=== PATIENT | male | born 1935 | race Caucasian/White ===

== ENCOUNTER 2016-11-16 17:32 | Emergency (ER) | payer MEDICARE, OTHER ==
[2016-11-16] MEDS ORDERED: Zofran 4 MG/2 ML VIAL IV ONE (18:00)
[2016-11-16] MEDS ORDERED: Sodium Chloride 0.9% 1000 ML 1,000 ML IV SCH (18:00)
[2016-11-16] MEDS ORDERED: SUBLIMAZE 100 MCG/2 ML IV ONE ×3 (18:00→20:37)
[2016-11-16] MEDS ORDERED: SUBLIMAZE 100 MCG/2 ML ONE ×3 (18:05→20:46)
[2016-11-16] MEDS ORDERED: Zofran 4 MG/2 ML VIAL ONE (18:05)
[2016-11-16] MEDS ORDERED: Sodium Chloride 0.9% 1000 ML 1,000 ML ONE (18:06)
[2016-11-16 18:11] LABS: BASOPHIL % 0.1 % (0.0-0.4); Eosinophil % 0.1 % (0.00-5.0); Granulocytes % 83.4 % (36.0-66.0); Lymphocytes % 8.9 % (24.0-44.0); Mean Cell Volume 102.9 fl (78-100); Mean Corpuscular Hemoglobin 32.6 pg (26-32); Mean Platelet Volume 9.1 fl (6-9.5); Monocytes % 7.5 % (0.0-12.0); Platelet Count 194 K/mm3 (150-450); Red Blood Count 3.74 M/mm3 (4.1-5.6); Red Cell Distribution Width 15.6 % (11.5-14.0); White Blood Count 9.3 K/mm3 (4.0-10.5)
[2016-11-16 18:25] LABS: INR 1.02 (0.8-3.0); PROTIME 11.4 SECONDS (8.83-12.87)
[2016-11-16 18:37] LABS: ALBUMIN 3.4 g/dL (3.4-5.0); ANION GAP 14.8 MEQ/L (5-15); BILIRUBIN,TOTAL 0.5 mg/dL (0.2-1.0); Carbon Dioxide 31.4 mEq/L (21-32); Potassium 4.8 mEq/L (3.5-5.1); Total Protein 6.5 gm/dL (6.4-8.2)
--- NOTE | 2016-11-16 19:08 | ERPHSYRPT ---
- History of Present Illness Time Seen by Provider: 11/16/16 17:45 Historian: patient Exam Limitations: clinical condition Patient Subjective Stated Complaint: PT STATES AMBULANCE WAS TAKING [facility] AND HE HAD A SUDDEN ONSET OF ABDOMINAL APIN AFTER DIALYSIS THIS AFTERNOON. PT STATES PAIN IS CRAMPING AND COMES AND GOES. LAST BM ON 11/15/16. Triage Nursing Assessment: PT PINK, WARM, DRY. ABDOMEN HARD, DISTENDED. BOWEL SOUNDS PRESENT IN ALL 4 QUADS. PT AFEBRILE. Physician History: PATIENT WITH HISTORY OF CHRONIC RENAL FAILURE, ONSET OF GENERALIZED ABDOMINAL PAIN EARLIER THIS AM, DENIES NAUSEA, EMESIS OR DIARRHEA. HAD DIALYSIS THIS AFTERNOON. STATES ABDOMINAL PAIN HAS BEEN CONSTANT, PAIN SCALE 8/10. Timing/Duration: today Quality: sharpness Abdominal Pain Onset Location: generalized abdomen Pain Radiation: no radiation Severity of Pain-Max: moderate Severity of Pain-Current: moderate Modifying Factors: Improves With: nothing Associated Symptoms: denies symptoms Previous symptoms: no prior history Allergies/Adverse Reactions: Barbiturates Allergy (Verified 11/16/16 17:40) hallucinations morphine Allergy (Verified 11/16/16 17:40) hallucinations Home Medications: Gabapentin 300 mg PO BID 09/26/14 [History] Metoprolol Tartrate 25 mg [Lopressor 25MG Tab] 25 mg PO BID 09/26/14 [ History] Multivit-Min/FA/Lycopene/Lut [Centrum Silver Ultra Men's Tab] 1 each PO DAILY [History] Pantoprazole Sodium [Protonix] 40 mg PO DAILY 09/26/14 [History] Prednisone 20 mg [Deltasone 20 mg] 20 mg PO DAILY 09/26/14 [History] Tamsulosin HCl 0.4 mg [Flomax 0.4 MG] 0.4 mg PO HS 02/11/15 [History] Acetaminophen 325 mg [Tylenol 325 mg] 325 mg PO Q4HPRN PRN 06/16/15 [ History] Hx Tetanus, Diphtheria Vaccination/Date Given: Yes (UP OT DATE) Hx Influenza Vaccination/Date Given: Yes Hx Pneumococcal Vaccination/Date Given: Yes Immunizations Up to Date: Yes - Review of Systems Constitutional: No Fever, No Chills Eyes: No Symptoms Ears, Nose, & Throat: No Symptoms Respiratory: No Symptoms, No Cough, No Dyspnea Cardiac: No Chest Pain, No Edema, No Syncope Abdominal/Gastrointestinal: Abdominal Pain, No Nausea, No Vomiting, No Diarrhea Genitourinary Symptoms: No Symptoms, No Dysuria Musculoskeletal: No Back Pain, No Neck Pain Skin: No Rash Neurological: No Symptoms, No Dizziness, No Focal Weakness, No Sensory Changes Psychological: No Symptoms Endocrine: No Symptoms All Other Systems: Reviewed and Negative - Past Medical History Pertinent Past Medical History: Yes Neurological History: Peripheral Neuropathy ENT History: Cataracts, Macular Degeneration Cardiac History: Arrhythmia, Hypertension Respiratory History: No Pertinent History Endocrine Medical History: No Pertinent History Musculoskeletal History: Degenerative Disk Disease, Fractures, Osteoarthritis, Osteoporosis, Rheumatoid Arthritis GI Medical History: GERD, Ulcer History: Renal Disease Psycho-Social History: Anxiety, Depression Male Reproductive Disorders: No Pertinent History Other Medical History: DEGENERATIVE DISC DISEASE. stage 4 kidney failure. pulmonary fibrosis. chronic pain. DIALYSIS - Past Surgical History Past Surgical History: Yes Neuro Surgical History: No Pertinent History Cardiac: No Pertinent History Respiratory: No Pertinent History Gastrointestinal: Appendectomy Genitourinary: No Pertinent History Musculoskeletal: Orthopedic Surgery Male Surgical History: No Pertinent History Other Surgical History: TONSILLECTOMYbilateral hips and left knee replaced, left shoulder "Ball replaces". back surgery- laminectomy/"formenectomy". Kyphoplasty 02/05/15 - Social History Smoking Status: Former smoker Exposure to second hand smoke: No Drug Use: none Patient Lives Alone: No - Nursing Vital Signs Nursing Vital Signs: Initial Vital Signs Temperature 98.8 F Temperature Source Oral Pulse Rate 104 Respiratory Rate 18 Blood Pressure [] 150/73 Pain Intensity 2 - Physical Exam General Appearance: mild distress, alert Eye Exam: PERRL/EOMI, eyes nml inspection Ears, Nose, Throat Exam: normal ENT inspection, pharynx normal, moist mucous membranes Neck Exam: normal inspection, non-tender, supple, full range of motion Respiratory Exam: normal breath sounds, lungs clear, No respiratory distress Cardiovascular Exam: regular rate/rhythm, normal heart sounds Gastrointestinal/Abdomen Exam: soft, normal bowel sounds, tenderness, distention (MODERATELY DISTENTION, PERIUMBILICAL AND RIGHT LOWER QUAD TENDERNESS ), No mass Back Exam: normal inspection, normal range of motion, No CVA tenderness, No vertebral tenderness Extremity Exam: normal inspection, normal range of motion, pelvis stable Neurologic Exam: alert, oriented x 3, cooperative, normal mood/affect, nml cerebellar function, sensation nml, No motor deficits Skin Exam: normal color, warm, dry SpO2 Interpretation: normal SpO2: 97 Oxygen Delivery: Room Air - CT Exams Abdomen/Pelvis CT Interpretation: Discussed w/radiologist (STABLE NONACUTE ABDOMINAL PELVIC CT WITHOUT CONTRAST, SCATTERED COLONIC DIVERTICULOSIS, ) Ordered Tests: Active Orders 24 hr Category Date Time Status IV Insertion STAT Care 11/16/16 17:51 Active Oxygen-ED Only NASAL CANNULA 3 lpm Care 11/16/16 18:32 Active ABDOMEN AND PELVIS W/0 CONTRAS [CT] Stat Exams 11/16/16 18:05 Taken AMYLASE Stat Lab 11/16/16 18:00 Completed CBC W DIFF Stat Lab 11/16/16 18:00 Completed CMP Stat Lab 11/16/16 18:00 Completed LIPASE Stat Lab 11/16/16 18:00 Completed PROTIME WITH INR Stat Lab 11/16/16 18:10 Completed Medication Summary Generic Name Dose Route Start Last Admin Trade Name Freq PRN Reason Stop Dose Admin Sodium Chloride 1,000 mls @ 10 mls/hr 11/16/16 18:00 11/16/16 18:07 Sodium Chloride 0.9% 1000 Ml IV 12/16/16 17:59 10 mls/hr .Q24H ALYSHA Administration Discontinued Medications Generic Name Dose Route Start Last Admin Trade Name Freq PRN Reason Stop Dose Admin Fentanyl Citrate 25 mcg 11/16/16 18:00 11/16/16 18:07 Sublimaze 100 Mcg/2 Ml IV 11/16/16 18:01 25 mcg STAT ONE Administration Fentanyl Citrate Confirm 11/16/16 18:05 Sublimaze 100 Mcg/2 Ml Administered 11/16/16 18:06 Dose 100 mcg .ROUTE .STK-MED ONE Fentanyl Citrate 50 mcg 11/16/16 19:02 11/16/16 19:10 Sublimaze 100 Mcg/2 Ml IV 11/16/16 19:03 50 mcg STAT ONE Administration Fentanyl Citrate Confirm 11/16/16 19:10 Sublimaze 100 Mcg/2 Ml Administered 11/16/16 19:11 Dose 100 mcg .ROUTE .STK-MED ONE Sodium Chloride Confirm 11/16/16 18:06 Sodium Chloride 0.9% 1000 Ml Administered 11/16/16 18:07 Dose 1,000 mls @ ud .ROUTE .STK-MED ONE Ondansetron HCl 4 mg 11/16/16 18:00 11/16/16 18:07 Zofran 4 Mg/2 Ml Vial IV 11/16/16 18:01 4 mg STAT ONE Administration Ondansetron HCl Confirm 11/16/16 18:05 Zofran 4 Mg/2 Ml Vial Administered 11/16/16 18:06 Dose 4 mg .ROUTE .STK-MED ONE Lab/Rad Data: Laboratory Result Diagrams 11/16/16 18:00 11/16/16 18:00 Laboratory Results 11/16/16 11/16/16 11/16/16 Range/Units 18:10 18:00 18:00 WBC 9.3 (4.0-10.5) K/mm3 RBC 3.74 L (4.1-5.6) M/mm3 Hgb 12.2 L (12.5-18.0) gm/dl Hct 38.5 L (42-50) % MCV 102.9 H (78-100) fl MCH 32.6 H (26-32) pg MCHC 31.7 L (32-36) g/dl RDW 15.6 H (11.5-14.0) % Plt Count 194 (150-450) K/mm3 MPV 9.1 (6-9.5) fl Gran % 83.4 H (36.0-66.0) % Lymphocytes % 8.9 L (24.0-44.0) % Monocytes % 7.5 (0.0-12.0) % Eosinophils % 0.1 (0.00-5.0) % Basophils % 0.1 (0.0-0.4) % Basophils # 0.01 (0-0.4) INR 1.02 (0.8-3.0) Sodium 139 (136-145) mEq/L Potassium 4.8 (3.5-5.1) mEq/L Chloride 98 (98-107) mEq/L Carbon Dioxide 31.4 (21-32) mEq/L Anion Gap 14.8 (5-15) MEQ/L BUN 12 (9-20) mg/dL Creatinine 3.43 H (0.55-1.30) mg/dl Estimated GFR 18 ML/MIN Glucose 125 H (70-110) MG/DL Calcium 9.1 (8.5-10.1) mg/dL Total Bilirubin 0.5 (0.2-1.0) mg/dL AST 15 (15-37) U/L ALT 21 (12-78) U/L Alkaline Phosphatase 77 (46-116) U/L Serum Total Protein 6.5 (6.4-8.2) gm/dL Albumin 3.4 (3.4-5.0) g/dL Amylase 215 H (25-115) U/L Lipase 241 (73-393) U/L - Progress Progress: pain not gone completely Progress Note: 11/16/16 19:07 PATIENT GIVEN IV NORMAL SALINE 10ML/HR, ZOFRAN 4MG IV, FENTANYL 25MCG, FOLLOWED BY ADDITIONAL DOSE FENTANYL 50MCG IV Discussed with : Other (DISCUSSED WITH DR MILES AT 1940 ACCEPTS TRANSFER VIA [facility] TO [facility]) - Departure Time of Disposition: 20:30 Departure Disposition: Transfer Clinical Impression: ACUTE ABDOMINAL PAIN, CHRONIC RENAL FAILURE Condition: Stable Critical Care Time: No Referrals: PITER DANIEL MD [Primary Care Provider] -
[2016-11-16 21:14] VITALS: BP 118/71; PULSE 79; O2SAT 99
--- NOTE | 2016-11-17 08:45 | XRAY ---
Indication: Lower abdominal pain. Abdominal distention. Multiple contiguous axial images obtained through the abdomen and pelvis without contrast as ordered. Comparison: May 02, 2014. Lung bases again demonstrates bibasilar fibrosis/scarring and calcified pleural plaquing. Heart is not enlarged. Images through the pelvic floor are degraded by extreme beam artifact from bilateral hip prostheses. Noncontrasted stomach and bowel loops appear nonobstructed. Again scattered colonic diverticulosis greatest in the descending and sigmoid colon without diverticulitis. Previous reported appendectomy. No free fluid/air. Both kidneys remain small. Punctate nonobstructing left renal calculus. Again a few pancreatic calcifications presumed chronic pancreatitis. Remaining liver, gallbladder, pancreas, spleen, adrenal glands, kidneys, ureters, and bladder appear unremarkable for noncontrast exam. There remains moderate aortoiliac calcifications without AAA. Osseous structures again demonstrates moderate multilevel degenerative changes throughout the spine. There has been interval L1/L2 kyphoplasty. Stable small fatty left inguinal hernia. Impression: 1. No acute intra-abdominal/pelvic abnormalities on this noncontrast exam. 2. Again scattered bibasilar calcified pleural plaquing, colonic diverticulosis, chronic pancreatitis, and small fatty left inguinal hernia. 3. New nonobstructing left renal micro-calculus. CT DI 33.54
== END 2016-11-16 20:50 | disposition short-term general hospital (02) ==
LOC: ED 17:32
DX: R10.9 Unspecified abdominal pain (principal); N18.9 Chronic kidney disease, unspecified; K57.90 Diverticulosis of intestine, part unspecified, without perforation or abscess without bleeding; I10 Essential (primary) hypertension; Z79.899 Other long term (current) drug therapy
CPT/HCPCS: 36000; 36415; 74176; 80053; 82150; 83690; 85025; 85610; 96360; 96361; 96374; 96375; 96376; 99285; J2405; J3010

== ENCOUNTER 2017-01-15 13:54 | Emergency (ER) | payer MEDICARE, OTHER ==
[2017-01-15 14:09] VITALS: PULSE 88; O2SAT 97
[2017-01-15 14:11] VITALS: BP 127/67
[2017-01-15] MEDS ORDERED: TYLENOL EXTRA STRENGTH 500 MG PO STA (14:13)
[2017-01-15] MEDS ORDERED: TYLENOL EXTRA STRENGTH 500 MG ONE (14:16)
--- NOTE | 2017-01-15 14:21 | ERPHSYRPT ---
- History of Present Illness Time Seen by Provider: 01/15/17 14:16 Source: patient, EMS Exam Limitations: no limitations Patient Subjective Stated Complaint: PT FELL ASLEEP IN THE WHEELCHAIR ET FELL OUT-REPORTS HITTING HEAD-REPORTS HEADACHE-DENIES LOC-REPORTS PAIN TO RIGHT SHOULDER ET ARM Triage Nursing Assessment: PT [id number] NONLAOBRED-LARGE SKIN TEAR NOTED TO RIGHT SHOULDER ET ARM-BLEEDING CONTROLLED DATA ANALYSIS INTERN Physician History: The patient is an 81-year-old male who is a resident of [facility] complains of falling asleep in his wheelchair and then falling out of his wheelchair striking his right upper extremity and face on the hard floor. He doesn't remember the incident specifically. He has numerous skin tears on the right upper extremity. He says his head hurts. His past medical history is significant for sciatica, pulmonary fibrosis, renal failure, hypertension, GERD, and neuropathy. Occurred: just prior to arrival Reason for Fall: lost balance (from seated position) Injuries/Pain Location: head, face, upper extremity (right) Loss of Consciousness: brief (seconds) Quality: aching Severity of Pain-Max: moderate Severity of Pain-Current: moderate Modifying Factors: Improves With: nothing Associated Symptoms (Fall): denies symptoms Allergies/Adverse Reactions: Barbiturates Allergy (Verified 01/15/17 14:03) hallucinations morphine Allergy (Verified 01/15/17 14:03) hallucinations Home Medications: Gabapentin 300 mg PO BID 09/26/14 [History] Metoprolol Tartrate 25 mg [Lopressor 25MG Tab] 25 mg PO BID 09/26/14 [ History] Multivit-Min/FA/Lycopene/Lut [Centrum Silver Ultra Men's Tab] 1 each PO DAILY [History] Pantoprazole Sodium [Protonix] 40 mg PO DAILY 09/26/14 [History] Prednisone 20 mg [Deltasone 20 mg] 20 mg PO DAILY 09/26/14 [History] Acetaminophen 325 mg [Tylenol 325 mg] 325 mg PO Q4HPRN PRN 06/16/15 [ History] Isosorbide Mononitrate 30 mg [Imdur 30 MG] 30 mg PO HS 01/15/17 [History] Midodrine HCl 10 mg PO TID 01/15/17 [History] Hx Tetanus, Diphtheria Vaccination/Date Given: Yes Hx Influenza Vaccination/Date Given: Yes Hx Pneumococcal Vaccination/Date Given: Yes Immunizations Up to Date: Yes - Review of Systems Constitutional: No Fever, No Chills Eyes: No Symptoms Ears, Nose, & Throat: No Symptoms Respiratory: No Cough, No Dyspnea Cardiac: No Chest Pain, No Edema, No Syncope Abdominal/Gastrointestinal: No Abdominal Pain, No Nausea, No Vomiting, No Diarrhea Genitourinary Symptoms: No Dysuria Musculoskeletal: Fall, Injury Skin: Skin Lesions Neurological: Headache, No Dizziness, No Focal Weakness, No Sensory Changes Psychological: No Symptoms Endocrine: No Symptoms Hematologic/Lymphatic: No Symptoms Immunological/Allergic: No Symptoms All Other Systems: Reviewed and Negative - Past Medical History Pertinent Past Medical History: Yes Neurological History: Peripheral Neuropathy ENT History: Cataracts, Macular Degeneration Cardiac History: Arrhythmia, Hypertension Respiratory History: No Pertinent History Endocrine Medical History: No Pertinent History Musculoskeletal History: Degenerative Disk Disease, Fractures, Osteoarthritis, Osteoporosis, Rheumatoid Arthritis GI Medical History: GERD, Ulcer History: Renal Disease Psycho-Social History: Anxiety, Depression Male Reproductive Disorders: No Pertinent History Other Medical History: DEGENERATIVE DISC DISEASE. stage 4 kidney failure. pulmonary fibrosis. chronic pain. DIALYSIS - Past Surgical History Past Surgical History: Yes Neuro Surgical History: No Pertinent History Cardiac: No Pertinent History Respiratory: No Pertinent History Gastrointestinal: Appendectomy Genitourinary: No Pertinent History Musculoskeletal: Orthopedic Surgery Male Surgical History: No Pertinent History Other Surgical History: TONSILLECTOMYbilateral hips and left knee replaced, left shoulder "Ball replaces". back surgery- laminectomy/"formenectomy". Kyphoplasty 02/05/15 - Social History Smoking Status: Former smoker Exposure to second hand smoke: No Drug Use: none Patient Lives Alone: No - Nursing Vital Signs Nursing Vital Signs: Initial Vital Signs Temperature 97.5 F Temperature Source Oral Pulse Rate 88 Respiratory Rate 22 Blood Pressure [Right Arm] 127/67 Pain Intensity 10 - Crystal Coma Score Best Eye Response ([place]): (4) open spontaneously Best Verbal Response ([place]): (5) oriented Best Motor Response ([place]rystal): (6) obeys commands Crystal Total: 15 - Physical Exam General Appearance: moderate distress Head Injury: tenderness (facial) Eye Exam: PERRL/EOMI ENT Exam: airway nml Neck Exam: normal inspection, No tenderness Respiratory/Chest Exam: normal breath sounds, No chest tenderness, No respiratory distress Cardiovascular Exam: normal heart sounds, regular rate/rhythm Gastrointestinal Exam: soft, No tenderness, No distention, No guarding, No ecchymosis Rectal Exam: not done Back Exam: normal inspection, No vertebral tenderness Extremity Exam: normal inspection, normal range of motion, pelvis stable, No deformities Neurologic Exam: alert, oriented x 3, cooperative, sensation nml, No motor deficits Skin Exam: other (numerous skin tears to right shoulder, right arm, and left hand.) SpO2 Interpretation: normal SpO2: 97 Oxygen Delivery: Nasal Cannula - CT Exams Cervical Spine CT Interpretation: Negative, Tele-radiologist Report (No new acute findings per Dr Hendrickson) Head CT Interpretation: Tele-radiologist Report, No/Intracranial Hemorrhag (No acute intracranial bleed, opacification L maxillary sinus and R mastoid air cells presumed inflammatory per DR Hendrickson.) Ordered Tests: Active Orders 24 hr Category Date Time Status Wound Care STAT Care 01/15/17 14:14 Active CERVICAL SPINE WO CONTRAST [CT] Stat Exams 01/15/17 14:09 Taken HEAD WITHOUT CONTRAST [CT] Stat Exams 01/15/17 14:09 Taken Medication Summary Discontinued Medications Generic Name Dose Route Start Last Admin Trade Name Rick PRN Reason Stop Dose Admin Acetaminophen 1,000 mg 01/15/17 14:13 01/15/17 14:19 Tylenol Extra Strength 500 Mg PO 01/15/17 14:14 1,000 mg STAT STA Administration Acetaminophen Confirm 01/15/17 14:16 Tylenol Extra Strength 500 Mg Administered 01/15/17 14:17 Dose 1,000 mg .ROUTE .STK-MED ONE Hydromorphone HCl 0.5 mg 01/15/17 14:52 01/15/17 15:15 Hydromorphone 1 Mg/Ml Ampule IM 01/15/17 14:53 0.5 mg STAT ONE Administration Hydromorphone HCl Confirm 01/15/17 15:12 Hydromorphone 1 Mg/Ml Ampule Administered 01/15/17 15:13 Dose 1 mg .ROUTE .STK-MED ONE - Progress Progress: improved, pain not gone completely Counseled pt/family regarding: diagnosis, rad results - Departure Time of Disposition: 16:00 Departure Disposition: Home Clinical Impression: Multiple contusions, Skin tear Condition: Stable Critical Care Time: No Additional Instructions: You fell out of her wheelchair onto a hard floor causing multiple contusions and multiple tears to your skin. The head and cervical spine CTs were negative for any fractures. The skin tears were closed with Steri-Strips. These will fall off on their own. You were given Dilaudid 0.5 mg by IM injection in the ER for pain. You may take Tylenol as needed for pain in the [facility]ci.
[2017-01-15] MEDS ORDERED: Hydromorphone 1 mg/ml Ampule IM ONE (14:52)
[2017-01-15] MEDS ORDERED: Hydromorphone 1 mg/ml Ampule ONE (15:12)
[2017-01-15] MEDS ORDERED: BACIGUENT PACKET ONE (16:18)
[2017-01-15] MEDS ORDERED: BACIGUENT PACKET TP ONE (16:44)
--- NOTE | 2017-01-15 22:03 | XRAY ---
Indication: Frontal fall from wheelchair. Multiple contiguous axial images obtained through the cervical spine. Sagittal and coronal reformatted images obtained. Comparison: August 07, 2016 Axial images again negative for acute fracture, suspicious bony lesions, or spinal canal stenosis. Stable multilevel degenerative endplate spurring again greatest at the C5-C7 level. Stable degenerative facet arthropathy. Sagittal and coronal reformatted images again demonstrates lordotic straightening, positional versus paraspinal spasm. Stable multilevel degenerative disc space loss and degenerative 2 mm C2 spondylolisthesis on C3. No acute compression fracture or jumped facet. Normal-appearing craniocervical junction. Visualized noncontrasted soft tissues again demonstrates bilateral carotid calcifications and near complete opacification of the left maxillary sinus with calcification. CT head reported separately. Impression: 1. Stable lordotic straightening, positional versus paraspinal spasm. Again negative for acute fracture/subluxation. 2. Stable multilevel degenerative changes including minimal C2 grade 1 spondylolisthesis. 3. Stable chronic left maxillary sinus disease. CTDI 68.05
--- NOTE | 2017-01-15 22:09 | XRAY ---
Indication: Frontal fall from wheelchair. Multiple contiguous axial images obtained through the head without contrast. Comparison: June 16, 2015. Stable age-appropriate global atrophy and mild periventricular degenerative microvascular ischemia bilaterally. All the ventricles remain prominent. No acute intracranial hemorrhage, abnormal extra-axial fluid collection, or mass effect. Bony calvarium intact. There is now moderate mucoperiosteal thickening of the left maxillary sinus and near-complete opacification of the right mastoid air cells. Impression: 1. Stable nonacute senile brain and prominent ventricular system. 2. Incidental pattern is sinus disease. Near-complete opacification of the right mastoid air cells presumed inflammatory. CTDI 61.38
== END 2017-01-15 16:46 | disposition home or self-care (01) ==
LOC: ED 13:54
DX: S00.93XA Contusion of unspecified part of head, initial encounter (principal); S00.83XA Contusion of other part of head, initial encounter; S41.011A Laceration without foreign body of right shoulder, initial encounter; S41.111A Laceration without foreign body of right upper arm, initial encounter; S61.412A Laceration without foreign body of left hand, initial encounter; R51 Headache; M25.511 Pain in right shoulder; W05.0XXA Fall from non-moving wheelchair, initial encounter; Y93.84 Activity, sleeping; Y92.129 Unspecified place in nursing home as the place of occurrence of the external cause; Y99.8 Other external cause status; I12.9 Hypertensive chronic kidney disease with stage 1 through stage 4 chronic kidney disease, or unspecified chronic kidney disease; N18.4 Chronic kidney disease, stage 4 (severe); M54.30 Sciatica, unspecified side; K21.9 Gastro-esophageal reflux disease without esophagitis; G62.9 Polyneuropathy, unspecified; M81.0 Age-related osteoporosis without current pathological fracture; M06.9 Rheumatoid arthritis, unspecified; Z99.2 Dependence on renal dialysis; F41.8 Other specified anxiety disorders; Z79.899 Other long term (current) drug therapy
CPT/HCPCS: 70450; 72125; 96372; 99284; J1170; A9270-GY

== ENCOUNTER 2017-01-28 12:44 | Emergency (ER) | payer MEDICARE, OTHER ==
[2017-01-28] MEDS ORDERED: TENIVAC VIAL IM ONE (12:55)
[2017-01-28 13:33] LABS: Mean Corpuscular Hemoglobin 33.4 pg (26-32); Mean Platelet Volume 9.1 fl (6-9.5); Platelet Count 195 K/mm3 (150-450); Red Blood Count 3.08 M/mm3 (4.1-5.6); Red Cell Distribution Width 15.3 % (11.5-14.0); White Blood Count 10.6 K/mm3 (4.0-10.5)
[2017-01-28 13:40] LABS: INR 1.06 (0.8-3.0); PROTIME 11.8 SECONDS (8.83-12.87)
[2017-01-28 13:43] LABS: PTT 27.5 SECONDS (24.1-36.1)
[2017-01-28 13:48] LABS: ALBUMIN 2.7 g/dL (3.4-5.0); ANION GAP 10.5 MEQ/L (5-15); BILIRUBIN,TOTAL 0.6 mg/dL (0.2-1.0); Carbon Dioxide 34.1 mEq/L (21-32); Potassium 5.1 mEq/L (3.5-5.1); Total Protein 5.6 gm/dL (6.4-8.2)
[2017-01-28] MEDS ORDERED: Hydromorphone 1 mg/ml Ampule IV ONE (14:35)
[2017-01-28] MEDS ORDERED: Hydromorphone 1 mg/ml Ampule ONE (14:37)
--- NOTE | 2017-01-28 14:43 | ERPHSYRPT ---
- History of Present Illness Time Seen by Provider: 01/28/17 12:55 Source: patient, family (daughter), EMS, [facility] records Patient Subjective Stated Complaint: FELL FROM CHAIR AT [employer] [facility]. C/O PAIN TO RIGHT SHOULDER. Triage Nursing Assessment: TO ROOM PER EMS COT. SKIN W/D, COLOR NORMAL. SEVERE PAIN NOTED TO RIGHT SHOULDER. HAS OLD SKIN TEARS TO RIGHT ARM. ONE NEW SKIN TEAR NOTED TO UPPER ARM. DRESSING TO TEARS. ALSO HAS PAIN LEFT LOWER LET BUT STATES THIS IN NOT NEW. LEFT LOWER LEG RED AND HAS OPEN SORE COVERED WITH DRESSING FROM HOME. Physician History: CC: fall Hx: 81 y/o patient of Dr Lawrence/Nate. He has hx of chronic renal failure. He has recent falls. Yesterday was more confused and had more mobililty issues after dialysis. He did not feel well today and has not had dialysis today. He slid from his chair. He lives at [facility]. EMS was called. He had some head pain and neck pain so was brought to ER. He has right shoulder pain. He has pain in left leg. Unsure if this is from the redness and swelling or from injury. Daughter worried the leg is more red and from infection. Tetanus up to date according to computer. Pt denies syncope but he was some confused on arrival. Occurred: just prior to arrival Reason for Fall: slipped (from lift chair) Allergies/Adverse Reactions: Barbiturates Allergy (Verified 01/28/17 13:25) hallucinations morphine Allergy (Verified 01/28/17 13:25) hallucinations NSAIDS (Non-Steroidal Anti-Inflamma Allergy (Verified 01/28/17 13:25) Home Medications: Gabapentin 300 mg PO BID 09/26/14 [History] Metoprolol Tartrate 25 mg [Lopressor 25MG Tab] 25 mg PO BID 09/26/14 [ History] Multivit-Min/FA/Lycopene/Lut [Centrum Silver Ultra Men's Tab] 1 each PO DAILY [History] Pantoprazole Sodium [Protonix] 40 mg PO DAILY 09/26/14 [History] Prednisone 20 mg [Deltasone 20 mg] 20 mg PO DAILY 09/26/14 [History] Acetaminophen 325 mg [Tylenol 325 mg] 325 mg PO Q4HPRN PRN 06/16/15 [ History] Isosorbide Mononitrate 30 mg [Imdur 30 MG] 30 mg PO HS 01/15/17 [History] Midodrine HCl 10 mg PO TID 01/15/17 [History] Hx Tetanus, Diphtheria Vaccination/Date Given: Yes Hx Influenza Vaccination/Date Given: Yes Hx Pneumococcal Vaccination/Date Given: Yes - Review of Systems Constitutional: No Fever, No Chills Eyes: No Symptoms Respiratory: No Dyspnea Cardiac: No Chest Pain Abdominal/Gastrointestinal: No Abdominal Pain Skin: Other (redness left leg. Abrasion right shoulder from prior fall.) Neurological: No Focal Weakness, No Parasthesia All Other Systems: Unable due to condition - Past Medical History Pertinent Past Medical History: Yes Neurological History: Peripheral Neuropathy ENT History: Cataracts, Macular Degeneration Cardiac History: Arrhythmia, Hypertension Respiratory History: No Pertinent History Endocrine Medical History: No Pertinent History Musculoskeletal History: Degenerative Disk Disease, Fractures, Osteoarthritis, Osteoporosis, Rheumatoid Arthritis GI Medical History: GERD, Ulcer History: Renal Disease Psycho-Social History: Anxiety, Depression Male Reproductive Disorders: No Pertinent History Other Medical History: DEGENERATIVE DISC DISEASE. stage 4 kidney failure. pulmonary fibrosis. chronic pain. DIALYSIS - Past Surgical History Past Surgical History: Yes Neuro Surgical History: No Pertinent History Cardiac: No Pertinent History Respiratory: No Pertinent History Gastrointestinal: Appendectomy Genitourinary: No Pertinent History Musculoskeletal: Orthopedic Surgery Male Surgical History: No Pertinent History Other Surgical History: TONSILLECTOMYbilateral hips and left knee replaced, left shoulder "Ball replaces". back surgery- laminectomy/"formenectomy". Kyphoplasty 02/05/15 - Social History Smoking Status: Former smoker Exposure to second hand smoke: No Drug Use: none Patient Lives Alone: No (assisted living) - Nursing Vital Signs Nursing Vital Signs: Initial Vital Signs Temperature 98.2 F Temperature Source Oral Pulse Rate 85 Respiratory Rate 22 Blood Pressure [Left Arm] 131/62 Pain Intensity 10 - Physical Exam General Appearance: alert, obese Head Injury: no evidence of injury Eye Exam: PERRL/EOMI Neck Exam: c-collar in place (changed to foam [place] collar here maintaining cervical stabilization.) Respiratory/Chest Exam: decreased breath sounds, No chest tenderness Cardiovascular Exam: regular rate/rhythm Gastrointestinal Exam: soft, No tenderness, No distention Back Exam: No vertebral tenderness Extremity Exam: tenderness (right shoulder with old and new abrasions/skin tears ) Neurologic Exam: alert, confusion (mildly), other (sometimes uncooperative which is not atypical for him), No motor deficits Skin Exam: warm, dry SpO2 Interpretation: normal SpO2: 97 Oxygen Delivery: Room Air - Course Nursing assessment & vital signs reviewed: Yes - Radiology Exams right shoulder, left lower leg, pelvis X-ray Interpretation: No Fracture - CT Exams cervical CT Interpretation: Tele-radiologist Report, No Fracture, No Subluxation head CT Interpretation: Tele-radiologist Report (normal pressure hydrocephalus, sinusitis, no bleed or fx) Ordered Tests: Active Orders 24 hr Category Date Time Status Cervical Collar Application STAT Care 01/28/17 12:55 Active IV Insertion STAT Care 01/28/17 12:55 Active NPO (ED) STAT Care 01/28/17 12:55 Active Wound Care STAT Care 01/28/17 12:55 Active CERVICAL SPINE WO CONTRAST [CT] Stat Exams 01/28/17 12:56 Taken HEAD WITHOUT CONTRAST [CT] Stat Exams 01/28/17 12:56 Taken LOWER LEG Stat Exams 01/28/17 12:57 Taken PELVIS (1 OR 2 VIEWS) Stat Exams 01/28/17 12:56 Taken SHOULDER Stat Exams 01/28/17 12:57 Taken BLOOD CULTURE Stat Lab 01/28/17 13:47 Received CBC W DIFF Stat Lab 01/28/17 13:17 Completed CMP Stat Lab 01/28/17 13:17 Completed Lactic Acid Stat Lab 01/28/17 13:33 Completed Manual Differential NC Stat Lab 01/28/17 13:17 Completed PROTIME WITH INR Stat Lab 01/28/17 13:17 Completed PTT Stat Lab 01/28/17 13:17 Completed Medication Summary Discontinued Medications Generic Name Dose Route Start Last Admin Trade Name Freq PRN Reason Stop Dose Admin Hydromorphone HCl 0.5 mg 01/28/17 14:35 01/28/17 14:42 Hydromorphone 1 Mg/Ml Ampule IV 01/28/17 14:36 0.5 mg STAT ONE Administration Hydromorphone HCl Confirm 01/28/17 14:37 Hydromorphone 1 Mg/Ml Ampule Administered 05/13/17 14:38 Dose 1 mg .ROUTE .STK-MED ONE Tetanus/Diphtheria Toxoids Adsorbed 0.5 ml 01/28/17 12:55 01/28/17 13:30 Tenivac Vial IM 01/28/17 12:56 Not Given .ONCE ONE Lab/Rad Data: Laboratory Result Diagrams 01/28/17 13:17 01/28/17 13:17 Laboratory Results 01/28/17 01/28/17 01/28/17 Range/Units 13:33 13:17 13:17 WBC (4.0-10.5) K/mm3 RBC (4.1-5.6) M/mm3 Hgb (12.5-18.0) gm/dl Hct (42-50) % MCV (78-100) fl MCH (26-32) pg MCHC (32-36) g/dl RDW (11.5-14.0) % Plt Count (150-450) K/mm3 MPV (6-9.5) fl Segmented Neutrophils (36.-66.) % Band Neutrophils (0.0-2.0) % Lymphocytes (Manual) (24-44) % Monocytes (Manual) (0.0-12.0) % Platelet Estimate (NORMAL) INR 1.06 (0.8-3.0) APTT 27.5 (24.1-36.1) SECONDS Sodium 141 (136-145) mEq/L Potassium 5.1 (3.5-5.1) mEq/L Chloride 101 (98-107) mEq/L Carbon Dioxide 34.1 H (21-32) mEq/L Anion Gap 10.5 (5-15) MEQ/L BUN 29 H (9-20) mg/dL Creatinine 5.68 H (0.55-1.30) mg/dl Estimated GFR 10 ML/MIN Glucose 145 H (70-110) MG/DL Lactic Acid 1.7 (0.4-2.0) Calcium 8.7 (8.5-10.1) mg/dL Total Bilirubin 0.6 (0.2-1.0) mg/dL AST 13 L (15-37) U/L ALT 15 (12-78) U/L Alkaline Phosphatase 67 (46-116) U/L Serum Total Protein 5.6 L (6.4-8.2) gm/dL Albumin 2.7 L (3.4-5.0) g/dL 01/28/17 Range/Units 13:17 WBC 10.6 H (4.0-10.5) K/mm3 RBC 3.08 L (4.1-5.6) M/mm3 Hgb 10.3 L (12.5-18.0) gm/dl Hct 34.2 L (42-50) % MCV 111.0 H (78-100) fl MCH 33.4 H (26-32) pg MCHC 30.1 L (32-36) g/dl RDW 15.3 H (11.5-14.0) % Plt Count 195 (150-450) K/mm3 MPV 9.1 (6-9.5) fl Segmented Neutrophils 79 H (36.-66.) % Band Neutrophils 2 (0.0-2.0) % Lymphocytes (Manual) 6 L (24-44) % Monocytes (Manual) 13 H (0.0-12.0) % Platelet Estimate NORMAL (NORMAL) INR (0.8-3.0) APTT (24.1-36.1) SECONDS Sodium (136-145) mEq/L Potassium (3.5-5.1) mEq/L Chloride (98-107) mEq/L Carbon Dioxide (21-32) mEq/L Anion Gap (5-15) MEQ/L BUN (9-20) mg/dL Creatinine (0.55-1.30) mg/dl Estimated GFR ML/MIN Glucose (70-110) MG/DL Lactic Acid (0.4-2.0) Calcium (8.5-10.1) mg/dL Total Bilirubin (0.2-1.0) mg/dL AST (15-37) U/L ALT (12-78) U/L Alkaline Phosphatase (46-116) U/L Serum Total Protein (6.4-8.2) gm/dL Albumin (3.4-5.0) g/dL - Progress Progress Note: 01/28/17 14:45 Daughter at bedside. Pt had large BM here which delayed imaging. He initially declined pain medication stating all opiods make him remember [place] and he did not want to go there. More uncomfortable on CT table so dilaudid given. 01/28/17 16:[address] Pineda for Dr Sullivan. He advised transfer to [facility] under hospitalist and defer abtx to them. Called [facility] one call and spoke to Dr Mackay who accepts transfer to [facility] hospitalist service. Counseled pt/family regarding: lab results, diagnosis, need for follow-up, rad results - Departure Time of Disposition: 16:25 Departure Disposition: Transfer Clinical Impression: Fall, Chronic renal failure, Cellulitis of left leg, Normal pressure hydrocephalus Condition: Fair Critical Care Time: No Referrals: PITER LAWRENCE MD [Primary Care Provider] -
[2017-01-28 15:46] LABS: BAND 2 % (0.0-2.0); Platelet Estimate NORMAL (NORMAL); Total Cells Counted 100
[2017-01-28 17:24] VITALS: BP 159/62; PULSE 76; O2SAT 98
--- NOTE | 2017-01-28 22:16 | XRAY ---
Indication: Injury following fall. Multiple contiguous axial images obtained through the head without contrast. Comparison: January 15, 2017. Study degraded by motion artifact. Stable age-appropriate global atrophy and mild periventricular degenerative microvascular ischemia bilaterally. All the ventricles remain prominent. No acute intracranial hemorrhage, abnormal extra-axial fluid collection, or mass effect. Bony calvarium intact. Again moderate mucoperiosteal thickening of the left maxillary sinus and near-complete opacification of the right mastoid air cells. Impression: 1. Motion artifact. 2. Stable nonacute senile brain and prominent ventricular system. 3. Again incidental paranasal sinus disease and opacification of the right mastoid air cells presumed inflammatory. Preliminary interpretation was made by [facility]. No discrepancy. CTDI 50.38
--- NOTE | 2017-01-28 22:20 | XRAY ---
Indication: Pain following fall. Comparison: August 22, 2016. 3 views of the right shoulder again demonstrates osteopenia and degenerative changes of the glenohumeral articulation and AC joint. No new/acute findings. Comment: Preliminary interpretation was made by [facility]. No discrepancy.
--- NOTE | 2017-01-28 22:22 | XRAY ---
Indication: Status post fall. 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 No other bony, articular, or soft tissue abnormalities.
--- NOTE | 2017-01-28 22:24 | XRAY ---
Indication: Status post fall. Comparison: None 2 views of the left lower leg demonstrates osteopenia, intact total knee arthroplasty, and scattered vascular calcifications. No other bony, articular, or soft tissue abnormalities.
--- NOTE | 2017-01-28 22:30 | XRAY ---
Indication: Status post fall. Multiple contiguous axial images obtained through the cervical spine. Sagittal and coronal reformatted images obtained. Comparison: January 15, 2017. Axial images demonstrates new nondisplaced hairline fracture involving the anterior arch of C1 inferiorly. No other acute fracture, suspicious bony lesions, or spinal canal stenosis. Stable multilevel degenerative endplate spurring again greatest at the C5-C7 level. Stable multilevel bilateral degenerative facet arthropathy. Sagittal and coronal reformatted images again demonstrates lordotic straightening, positional versus paraspinal spasm. Stable multilevel degenerative disc space loss and degenerative 2 mm C2 spondylolisthesis on C3. No acute compression fracture or jumped facet. Normal-appearing craniocervical junction. Visualized noncontrasted soft tissues again demonstrates bilateral carotid calcifications and near complete opacification of the left maxillary sinus with calcification. CT head reported separately. Impression: 1. New C1 anterior arch nondisplaced hairline fracture. 2. Stable lordotic straightening, positional versus paraspinal spasm. 3. Stable multilevel degenerative changes including minimal C2 grade 1 spondylolisthesis. 4. Stable chronic left maxillary sinus disease. Comment: Preliminary interpretation was made by [facility]. C1 fracture not reported. I gave telephone report to Dr. Tomlinson in the ER at 2225 hrs. on January 28, 2017. CTDI 25.72
== END 2017-01-28 17:50 | disposition short-term general hospital (02) ==
LOC: ED 12:44
DX: N18.6 End stage renal disease (principal); Z99.2 Dependence on renal dialysis; L03.116 Cellulitis of left lower limb; G91.2 (Idiopathic) normal pressure hydrocephalus; W07.XXXA Fall from chair, initial encounter; Y92.198 Other place in other specified residential institution as the place of occurrence of the external cause; M79.605 Pain in left leg; R51 Headache; M54.2 Cervicalgia; M25.511 Pain in right shoulder
CPT/HCPCS: 36000; 36415; 70450; 72125; 72170; 73030; 73590; 80053; 83605; 85025; 85610; 85730; 87040; 96374; 99285; J1170; L0172